=== PATIENT | male | born 1990 | race Caucasian/White ===

== ENCOUNTER 2020-05-03 20:30 | Emergency (ER) | payer SELFPAY ==
[~2020-05-03] VITALS: Ht 193 cm; Wt 117.0 kg
[2020-05-03 20:39] VITALS: Ht 193 cm; Wt 117.0 kg
[2020-05-03 21:08] VITALS: BP 157/63
== END 2020-05-03 21:09 | disposition home or self-care (01) ==
LOC: ED 20:30
DX: F12.90 Cannabis use, unspecified, uncomplicated (principal); R00.0 Tachycardia, unspecified
CPT/HCPCS: Q0162